=== PATIENT | female | born 1935 | race African-American/Black ===

== ENCOUNTER → 2017-03-10 | Day surgery (SDC) | payer MEDICARE, MEDICAID ==
[~2017-03-10] MED LIST: ASPI81CH7 CHEW; ATOR20TA15 PO; BUPR150T3 PO; CARV6.252 PO; CIPR-9 PO; CLOP75TA PO; FURO40TA PO; GABA300C5 PO; HYDR10TA23 PO; LOSA50TA PO; NORC5TAB PO; PROPOFOL 200 MG/20 ML AMP IV ONE; RISP2TAB2 PO; TRAZ50TA12 PO
--- NOTE | 2017-03-10 09:10 | GIPROC ---
[facility] [address] [facility] [place], [address] EGD PROCEDURE REPORT EXAM DATE: 03/10/2017 PATIENT NAME: Lou Sepulveda MR #: [id number] BIRTHDATE: 1935 ATTENDING: Charlene Laird MD ORDER #: [id number] [employer] SYSTEM[employer] ENGINEER: Rhoda Bowen RN STATUS: outpatient INDICATIONS: The patient is a 81 yr old female here for an EGD due to nausea PROCEDURE PERFORMED: EGD w/ biopsy MEDICATIONS: None and Per Anesthesia. TOPICAL ANESTHETIC: CONSENT: The patient understands the risks and benefits of the procedure and understands that these risks include, but are not limited to: sedation, allergic reaction, infection, perforation and/or bleeding. Alternative means of evaluation and treatment include, among others: physical exam, x-rays, and/or surgical intervention. The patient elects to proceed with this endoscopic procedure. medical equipment was checked for proper function. Hand hygiene and appropriate measures for infection prevention was taken. After the risks, benefits and alternatives of the procedure were thoroughly explained, Informed consent was verified, confirmed and timeout was successfully executed by the treatment team. The patient was anesthetized with topical anesthesia and the EC-[id number] ([id number]) endoscope was introduced through the mouth and advanced to the second portion of the duodenum. Retroflexed views revealed no abnormalities The gastroscope was then slowly withdrawn and removed. ESOPHAGUS: There was LA Class A esophagitis noted. A biopsy was performed using cold forceps. Sample sent for histology. STOMACH: There was erythematous moderate gastritis in the gastric antrum. A biopsy was performed using cold forceps. Sample sent for histology. DUODENUM: The duodenal mucosa appeared normal in the bulb and second portion of the duodenum. ADVERSE EVENTS: There were no complications. IMPRESSIONS: 1. There was LA Class A esophagitis noted; biopsy was performed 2. There was erythematous gastritis in the gastric antrum; biopsy was performed 3. Normal duodenal mucosa in the bulb and second portion of the duodenum 4. Retroflexed views revealed no abnormalities RECOMMENDATIONS: 1. Await biopsy results. Biopsy results will not be ready for 7-10 days. If you don't hear from us in two weeks, call our office for biopsy results. 2. Anti-reflux regimen 3. Continue PPI 4. Gastric emptying study 5. Follow-up: GI clinic 2 week(s) PATIENT CONDITION: stable DISPOSITION: Home REPEAT EXAM: Return 1 year EGD pending biopsy results Charlene Laird MD eSigned: Charlene Laird MD 03/10/2017 9:10 AM cc: Ruddy [facility] Claudette Hernandez M.D. PATIENT NAME: Lou Sepulveda Douglas MR#: [id number]
== END | disposition home or self-care (01) ==
LOC: ESDC 07:18
PROVIDERS: ATTEND Internal Medicine Gastroenterology
DX: R11.0 Nausea (principal); K20.9 Esophagitis, unspecified; K29.70 Gastritis, unspecified, without bleeding
CPT/HCPCS: 88305; 88312